=== PATIENT | male | born 1940 | race Caucasian/White ===

== ENCOUNTER 2017-05-08 08:49 | Observation (INO) | payer MEDICARE, SELFPAY ==
[2017-05-08 07:58] VITALS: BP 139/79; PULSE 91; PULSE 92; RESP 20; TEMP 36.2; O2SAT 96
--- NOTE | 2017-05-08 08:52 | PCM.HP.STD ---
Problem List (1) Back pain Status: Acute (2) DM2 (diabetes mellitus, type 2) Status: Chronic (3) CAD (coronary artery disease) Status: Chronic (4) Orthostatic hypotension Status: Chronic (5) VTE (venous thromboembolism) Status: Chronic (6) Depression Status: Chronic (7) CVA (cerebral vascular accident) Status: Chronic (8) COPD (chronic obstructive pulmonary disease) Status: Chronic (9) Hyperlipidemia Status: Chronic (10) Diverticulosis Status: Chronic (11) Dementia Status: Chronic History of Present Illness Date of Admission: 05/08/17 Chief Complaint: back pain The patient is a 77 year old M and awoke with back pain this morning. Is very severe and patient sent to the emergency room. Patient was noted to have back pain and the felt that there is EKG changes, apparently and patient was felt to be admitted. The try to get the patient admitted to my [facility] in hospital but they did not have any beds so the patient and family's next choice was for [place]. Patient does have a history of falls and most recent fall was this weekend. Was not having acute back pain at that time. The daughter, who is present at bedside much of the history is obtained through, does not know the mechanism fall but other than he fell in his bathroom. [] Past Medical History Past Medical History (Chronic Problems): Chronic Problems DM2 (diabetes mellitus, type 2) (Chronic) CAD (coronary artery disease) (Chronic) Orthostatic hypotension (Chronic) VTE (venous thromboembolism) (Chronic) Depression (Chronic) CVA (cerebral vascular accident) (Chronic) COPD (chronic obstructive pulmonary disease) (Chronic) Hyperlipidemia (Chronic) Diverticulosis (Chronic) Dementia (Chronic) Allergies Penicillins [PCN] Allergy (Verified 05/08/17 08:06) Swelling promethazine [From Phenergan] Allergy (Verified 05/08/17 08:06) Unknown Home Medications: Ambulatory Orders Medication Instructions Recorded Aspirin [Aspirin, Baby] 81 mg PO DAILY@0800 05/08/17 Atorvastatin Calcium 10 mg PO QHS 05/08/17 Cetirizine HCl [Zyrtec] 10 mg PO QHS 05/08/17 Ferrous Sulfate [Iron] 325 mg PO BID 05/08/17 Fludrocortisone Acetate [Florinef] 0.05 mg PO DAILY@0800 05/08/17 Insulin Aspart [Novolog Flexpen See Protocol [place] TIDCM 05/08/17 ([facility])] Insulin Lispro Protamin/Lispro 32 unit SQ BREAKFAST 05/08/17 [Humalog Mix 75-25 Kwikpen] Insulin Lispro Protamin/Lispro 36 unit SQ DINNER 05/08/17 [Humalog Mix 75-25 Kwikpen] Pantoprazole Sodium [Protonix] 40 mg PO DAILY 05/08/17 Paroxetine HCl [Paxil] 15 mg PO DAILY 05/08/17 Vitamin E Mixed [Vitamin E] 1,000 unit PO DAILY 05/08/17 Warfarin [Coumadin ([facility])] 2 mg PO TUTH 05/08/17 Warfarin [Coumadin ([facility])] 2.5 mg PO SUMOWEFRSA 05/08/17 Surgical History: cholecystectomy, coronary bypass surgery - 2007, total hip arthroplasty, - - cervical fusion 2003, orchiectomy Psychiatric History: Depression Lives: Senior Living Smoking Status: Former smoker Tobacco Use: Non-smoker Alcohol: None Drugs: None - *Family History Maternal History Items: Unknown - The patient is confused. Review of Systems Constitutional: Denies: Chills, Fever Eyes: Reports: Cataracts. Denies: Blurred vision, Double vision HEENT: Denies: Head Aches, Sinus Congestion, Sinus Drainage Cardiovascular: Denies: Chest Pain, Edema, Heaviness Respiratory: Denies: Cough, Shortness of breath at rest, Sputum production Gastrointestinal: Reports: Nausea - Occasionally, not currently.. Denies: Abdominal Pain, Vomiting Genitourinary: Denies: Dysuria, Frequency, Hematuria Musculoskeletal: Denies: Joint Pain, Joint Tenderness Skin: Denies: Rash, Wounds Neurological: Denies: Numbness, Tingling, Focal weakness Psychiatric: Reports: Depression. Denies: Anxiety Hematologic/ Lymphatic: Reports: Hx of blood clot. Denies: Easy Bruising, Easy Bleeding VTE Information - Inpt Only VTE Present on Admission: Yes Patient Problems: Active and Suspected Problems Back pain (Acute) - Physical Exam General: Alert, Cooperative, No apparent distress HEENT: Atraumatic, Normocephalic Neck: No Nodes, Thyroid Normal Size and Texture Lungs: Clear to auscultation, Normal air movement, No rhonchi, No wheeze Cardiovascular: Regular rate, Regular Rhythm, Normal S1, Normal S2, No murmurs Abdomen: Bowel Sounds Present, Soft, Non Tender, Non-Distended, No Hepato-splenomegaly Extremities: No edema, No Calf Tenderness Skin: No rashes, No breakdown Musculoskeletal: - - Tender palpation over the left upper thoracic paraspinal muscles. No point tenderness noted over the thoracic vertebrae. Psych/Mental Status: Normal Affect, Appropriate Vital Signs Temp Pulse Resp BP Pulse Ox 36.2 C L 91 20 H 139/79 H 96 05/08/17 07:58 05/08/17 07:58 05/08/17 07:58 05/08/17 07:58 05/08/17 07:58 Oxygen Delivery Method Room Air Weight: 87 kg Body Mass Index (BMI) 30.0 Assessment/Plan Active and Suspected Problems Back pain (Acute) 1. Back pain Feel that this is musculoskeletal as it is completely reproducible. Patient does not have any chest pain or even reproducible chest pain. Given the patient's falls I will order a thoracic spine x-ray to see if there is any new fractures. In the meantime just try to optimize pain control. Reassurance was provided to the patient's daughter is at bedside. 2. Coronary artery disease I personally reviewed the patient's EKG and saw no acute changes other than patient's old inferior infarct with inferior Q waves. Patient's troponin over at [place] was negative. We will cycle 2 additional troponins. 3. CODE STATUS: Addressed with the patient's daughter, patient is DNR Comfort Care arrest no intubation and no artificial nutrition. 4. VTE continue with Coumadin, INR is therapeutic. 5. Dementia, diabetes, orthostatic hypotension:, Get the patient's overall care but appears stable at this time. 6. Disposition If patient's troponins are negative and thoracic spine x-ray shows no compression fractures the anticipation is for the patient to be discharged back to [facility].
--- NOTE | 2017-05-08 09:03 | HP.PCM_ITS ---
Problem List (1) Back pain Status: Acute (2) DM2 (diabetes mellitus, type 2) Status: Chronic (3) CAD (coronary artery disease) Status: Chronic (4) Orthostatic hypotension Status: Chronic (5) VTE (venous thromboembolism) Status: Chronic (6) Depression Status: Chronic (7) CVA (cerebral vascular accident) Status: Chronic (8) COPD (chronic obstructive pulmonary disease) Status: Chronic (9) Hyperlipidemia Status: Chronic (10) Diverticulosis Status: Chronic (11) Dementia Status: Chronic History of Present Illness Date of Admission: 05/08/17 Chief Complaint: back pain The patient is a 77 year old M and awoke with back pain this morning. Is very severe and patient sent to the emergency room. Patient was noted to have back pain and the felt that there is EKG changes, apparently and patient was felt to be admitted. The try to get the patient admitted to my [facility] in hospital but they did not have any beds so the patient and family's next choice was for [place]. Patient does have a history of falls and most recent fall was this weekend. Was not having acute back pain at that time. The daughter, who is present at bedside much of the history is obtained through, does not know the mechanism fall but other than he fell in his bathroom. [] Past Medical History Past Medical History (Chronic Problems): Chronic Problems DM2 (diabetes mellitus, type 2) (Chronic) CAD (coronary artery disease) (Chronic) Orthostatic hypotension (Chronic) VTE (venous thromboembolism) (Chronic) Depression (Chronic) CVA (cerebral vascular accident) (Chronic) COPD (chronic obstructive pulmonary disease) (Chronic) Hyperlipidemia (Chronic) Diverticulosis (Chronic) Dementia (Chronic) Allergies Penicillins [PCN] Allergy (Verified 05/08/17 08:06) Swelling promethazine [From Phenergan] Allergy (Verified 05/08/17 08:06) Unknown Home Medications: Ambulatory Orders Medication Instructions Recorded Aspirin [Aspirin, Baby] 81 mg PO DAILY@0800 05/08/17 Atorvastatin Calcium 10 mg PO QHS 05/08/17 Cetirizine HCl [Zyrtec] 10 mg PO QHS 05/08/17 Ferrous Sulfate [Iron] 325 mg PO BID 05/08/17 Fludrocortisone Acetate [Florinef] 0.05 mg PO DAILY@0800 05/08/17 Insulin Aspart [Novolog Flexpen See Protocol SC TIDCM 05/08/17 ([facility])] Insulin Lispro Protamin/Lispro 32 unit SQ BREAKFAST 05/08/17 [Humalog Mix 75-25 Kwikpen] Insulin Lispro Protamin/Lispro 36 unit SQ DINNER 05/08/17 [Humalog Mix 75-25 Kwikpen] Pantoprazole Sodium [Protonix] 40 mg PO DAILY 05/08/17 Paroxetine HCl [Paxil] 15 mg PO DAILY 05/08/17 Vitamin E Mixed [Vitamin E] 1,000 unit PO DAILY 05/08/17 Warfarin [Coumadin ([facility])] 2 mg PO TUTH 05/08/17 Warfarin [Coumadin ([facility])] 2.5 mg PO SUMOWEFRSA 05/08/17 Surgical History: cholecystectomy, coronary bypass surgery - 2007, total hip arthroplasty, - - cervical fusion 2003, orchiectomy Psychiatric History: Depression Lives: [facility] Smoking Status: Former smoker Tobacco Use: Non-smoker Alcohol: None Drugs: None - *Family History Maternal History Items: Unknown - The patient is confused. Review of Systems Constitutional: Denies: Chills, Fever Eyes: Reports: Cataracts. Denies: Blurred vision, Double vision HEENT: Denies: Head Aches, Sinus Congestion, Sinus Drainage Cardiovascular: Denies: Chest Pain, Edema, Heaviness Respiratory: Denies: Cough, Shortness of breath at rest, Sputum production Gastrointestinal: Reports: Nausea - Occasionally, not currently.. Denies: Abdominal Pain, Vomiting Genitourinary: Denies: Dysuria, Frequency, Hematuria Musculoskeletal: Denies: Joint Pain, Joint Tenderness Skin: Denies: Rash, Wounds Neurological: Denies: Numbness, Tingling, Focal weakness Psychiatric: Reports: Depression. Denies: Anxiety Hematologic/ Lymphatic: Reports: Hx of blood clot. Denies: Easy Bruising, Easy Bleeding VTE Information - Inpt Only VTE Present on Admission: Yes Patient Problems: Active and Suspected Problems Back pain (Acute) - Physical Exam General: Alert, Cooperative, No apparent distress HEENT: Atraumatic, Normocephalic Neck: No Nodes, Thyroid Normal Size and Texture Lungs: Clear to auscultation, Normal air movement, No rhonchi, No wheeze Cardiovascular: Regular rate, Regular Rhythm, Normal S1, Normal S2, No murmurs Abdomen: Bowel Sounds Present, Soft, Non Tender, Non-Distended, No Hepato- splenomegaly Extremities: No edema, No Calf Tenderness Skin: No rashes, No breakdown Musculoskeletal: - - Tender palpation over the left upper thoracic paraspinal muscles. No point tenderness noted over the thoracic vertebrae. Psych/Mental Status: Normal Affect, Appropriate Vital Signs Temp Pulse Resp BP Pulse Ox 36.2 C L 91 20 H 139/79 H 96 05/08/17 07:58 05/08/17 07:58 05/08/17 07:58 05/08/17 07:58 05/08/17 07:58 Oxygen Delivery Method Room Air Weight: 87 kg Body Mass Index (BMI) 30.0 Assessment/Plan Active and Suspected Problems Back pain (Acute) 1. Back pain * Feel that this is musculoskeletal as it is completely reproducible. Patient does not have any chest pain or even reproducible chest pain. * Given the patient's falls I will order a thoracic spine x-ray to see if there is any new fractures. * In the meantime just try to optimize pain control. * Reassurance was provided to the patient's daughter is at bedside. 2. Coronary artery disease * I personally reviewed the patient's EKG and saw no acute changes other than patient's old inferior infarct with inferior Q waves. * Patient's troponin over at [place] was negative. We will cycle 2 additional troponins. 3. CODE STATUS: * Addressed with the patient's daughter, patient is DNR Comfort Care arrest no intubation and no artificial nutrition. 4. VTE * continue with Coumadin, INR is therapeutic. 5. Dementia, diabetes, orthostatic hypotension:, Get the patient's overall care but appears stable at this time. 6. Disposition * If patient's troponins are negative and thoracic spine x-ray shows no compression fractures the anticipation is for the patient to be discharged back to [facility].
[2017-05-08 09:21] LABS: Bedside Glucose 150 mg/dL (70-110)
[2017-05-08] MEDS: Ferrous Sulfate 325 MG Tablet PO (09:29)
--- NOTE | 2017-05-08 09:46 | RAD_ITS ---
STUDY: X-RAY - THORACIC SPINE REASON FOR EXAM: Male, 77 years old. Back pain following multiple falls. TECHNIQUE: 4 view(s) of the thoracic spine were obtained. COMPARISON: None. FINDINGS: There is straightening of the normal thoracic kyphosis. There is no substantial scoliosis. There is multilevel endplate spondylosis of the thoracic vertebrae. There is multilevel disc space narrowing of the thoracic spine. Prior fusion in the lower cervical spine. Calcification of the aortic knob. RAD/Thoracic Spine 2 Views IMPRESSION: Multilevel spondylosis and disc space narrowing. Electronically Signed: Arnulfo Benito MD at 10:14 EST Tel [phone], Service support ,
[2017-05-08] MEDS: Glucerna Shake 120 ML LIQUID PO ×2 (10:48→13:39)
[2017-05-08] MEDS: 0.9% NaCl Peripheral Flush Adult/Peds IV (10:49)
[2017-05-08] MEDS: Fludrocortisone Acetate 0.1 MG Tablet 0.05 MG PO (10:49)
[2017-05-08] MEDS: Pantoprazole Sodium 40 MG Tablet PO (10:49)
[2017-05-08 11:04] VITALS: PULSE 90
[2017-05-08] MEDS: Acetaminophen 325 MG Tablet 650 MG PO (12:00)
[2017-05-08 12:01] LABS: Bedside Glucose 222 mg/dL (70-110)
[2017-05-08 13:29] VITALS: BP 152/66; PULSE 89; RESP 20; TEMP 37.1; O2SAT 96
[2017-05-08] MEDS: PARoxetine 10 MG Tablet 15 MG PO (13:39)
--- NOTE | 2017-05-08 14:13 | PCM.TXEXTCAR ---
- Diet 05/08/17 08:50 Diet: Calorie Controlled Is pt able to select menu?: No How many daily calories?: 1800 calorie - Routine Orders/Code Status Routine Lab Work: INR Code Status: [id number]-A - Therapies Physical Therapy: Eval and Treat Occupational Therapy: Eval and Treat - Problem/Diagnosis (1) Back pain Status: Acute Current Visit: Yes (2) DM2 (diabetes mellitus, type 2) Status: Chronic Current Visit: Yes (3) CAD (coronary artery disease) Status: Chronic Current Visit: Yes (4) Orthostatic hypotension Status: Chronic Current Visit: Yes (5) VTE (venous thromboembolism) Status: Chronic Current Visit: Yes (6) Depression Status: Chronic Current Visit: Yes (7) CVA (cerebral vascular accident) Status: Chronic Current Visit: Yes (8) COPD (chronic obstructive pulmonary disease) Status: Chronic Current Visit: Yes (9) Hyperlipidemia Status: Chronic Current Visit: Yes (10) Diverticulosis Status: Chronic Current Visit: Yes (11) Dementia Status: Chronic Current Visit: Yes - Allergies/Procedures Done in Hospital Allergies/Adverse Reactions: Allergies Penicillins [PCN] Allergy (Verified 05/08/17 08:06) Swelling promethazine [From Phenergan] Allergy (Verified 05/08/17 08:06) Unknown - Type of Care/Length of Stay Estimated LOS: Convalescent Care Less Than 30 days Type of Care Needed: Intermediate Rehab Potential: Fair Prognosis: Fair - Additional Orders/Day of Discharge H&P will serve as current which was dated: 05/08/17 Day of Discharge: 05/08/17 - Follow Up Care Primary Care Physician: Dick Hogan,Out of [Primary Care Provider] -
[2017-05-08] MEDS: Vitamin E 400 UNITS Capsule 800 UNITS PO (14:17)
--- NOTE | 2017-05-08 14:18 | DS.PCM_ITS ---
Discharge Date and Diagnosis - Problem List Patient Problems: Active and Suspected Problems Back pain (Acute) Date of Admission: 05/08/17 Date of Discharge: 05/08/17 - Primary Discharge Diagnosis Active and Suspected Problems Back pain (Acute) - Secondary Discharge Diagnosis Chronic Problems DM2 (diabetes mellitus, type 2) (Chronic) CAD (coronary artery disease) (Chronic) Orthostatic hypotension (Chronic) VTE (venous thromboembolism) (Chronic) Depression (Chronic) CVA (cerebral vascular accident) (Chronic) COPD (chronic obstructive pulmonary disease) (Chronic) Hyperlipidemia (Chronic) Diverticulosis (Chronic) Dementia (Chronic) Hospital Course and Treatment Imaging Results: 05/08/17 09:46 Thoracic Spine 2 Views [RAD] Urgent Operations: None Procedures: None Summary of Care Provided: The patient is a 77 year old M awoke with back pain. Presented to [place] emergency room. [place] that his EKG was changed and felt that this was a chest pain equivalent and sent the patient over to [facility]. On evaluation patient had completely reproducible back pain in the left paraspinal upper thoracic muscles. Patient had no chest pain complaints or reproducible otherwise. EKG in my evaluation showed inferior Q waves which was present since 1999-09-01. I did not appreciate any other new changes. Patient did have a thoracic spine x-rays the patient is after falling and there is no evidence of any compression fractures. Patient did have 2 additional troponins on top of the one done at [place] that were normal. Patient be discharged back to his facility. He may take ibuprofen sparingly given that he is on Coumadin. Patient will continue with Tylenol. [] Discharge Diet: Low fat/ Low Cholesterol, 1800 Calorie Control Diet Discharge Activity: Return to Normal Activity Home Medications: Medications to take at Discharge Acetaminophen [Tylenol Tablet] 650 mg PO Q6H PRN PRN tablet 05/08/17 Aspirin [Aspirin, Baby] 81 mg PO DAILY@0800 05/08/17 Atorvastatin Calcium 10 mg PO QHS 05/08/17 Cetirizine HCl [Zyrtec] 10 mg PO QHS 05/08/17 Ferrous Sulfate [Iron] 325 mg PO BID 05/08/17 Fludrocortisone Acetate [Florinef] 0.05 mg PO DAILY@0800 05/08/17 Ibuprofen 600 mg PO Q6H PRN PRN #1 tablet 05/08/17 Insulin Aspart [Novolog Flexpen] See Protocol SC TIDCM 05/08/17 Insulin Lispro Protamin/Lispro [Humalog Mix 75-25 Kwikpen] 32 unit SQ BREAKFAST 05/08/17 Insulin Lispro Protamin/Lispro [Humalog Mix 75-25 Kwikpen] 36 unit SQ DINNER Pantoprazole Sodium [Protonix] 40 mg PO DAILY 05/08/17 Paroxetine HCl [Paxil] 15 mg PO DAILY 05/08/17 Vitamin E Mixed [Vitamin E] 1,000 unit PO DAILY 05/08/17 Warfarin [Coumadin] 2 mg PO TUTH 05/08/17 Warfarin [Coumadin] 2.5 mg PO SUMOWEFRSA 05/08/17 Following Prescrptions Were Given to Patient: Ibuprofen 600 mg PO Q6H PRN PRN #1 tablet PRN Reason: Pain Primary Care Physician: Dick Hogan,Out of [Primary Care Provider] - Disposition: Assisted facility Minutes spent on discharge:: 32 Patient Condition:: Fair Meaningful Use Info Meaningful Use Diagnoses (Choose all that apply): None applicable Code Visit OBSV E&M: 01511 Observ/hosp same date L2
--- NOTE | 2017-05-08 14:52 | CASEMGMT ---
Social Work Pt to be discharged today. Pt is currently a resident at [facility] and plans to return there. Clinicals and d/c orders faxed to Sue at [facility] and phone call placed to Sue informing of return. [employer] met with pt and dgt in room and they are agreeable to return to [facility] and have no preference on transportation used. 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 Pt and dgt notified. Nursing notified as well as Sue at [facility]. No further d/c needs. SIMRAN Carrasquillo
[2017-05-08 14:59] VITALS: BP 134/74; PULSE 93; RESP 20; TEMP 37.1; O2SAT 96
== END 2017-05-08 16:40 | disposition skilled nursing facility (03) ==
PROVIDERS: Admitting Provider Family Medicine; Visit Provider Family Medicine
DX: M54.6 Pain in thoracic spine (principal); E78.5 Hyperlipidemia, unspecified; J44.9 Chronic obstructive pulmonary disease, unspecified; E11.9 Type 2 diabetes mellitus without complications; I25.10 Atherosclerotic heart disease of native coronary artery without angina pectoris; F32.9 Major depressive disorder, single episode, unspecified; F03.90 Unspecified dementia, unspecified severity, without behavioral disturbance, psychotic disturbance, mood disturbance, and anxiety; Z79.899 Other long term (current) drug therapy; Z79.4 Long term (current) use of insulin; Z79.82 Long term (current) use of aspirin; Z79.01 Long term (current) use of anticoagulants; Z86.73 Personal history of transient ischemic attack (TIA), and cerebral infarction without residual deficits; Z91.81 History of falling; Z86.718 Personal history of other venous thrombosis and embolism; Z87.891 Personal history of nicotine dependence; Z95.1 Presence of aortocoronary bypass graft; Z98.1 Arthrodesis status; Z66 Do not resuscitate
CPT/HCPCS: 72070; 82962; 84484; 97802; 99218; A4216; G0378; G0379